=== PATIENT | male | born 1990 | race Caucasian/White ===

== ENCOUNTER 2020-03-20 16:12 | Emergency (ER) | payer OTHER | END 2020-03-21 00:50 | disposition other institution (70) | LOC: FER 16:12 | DX: T18.198A Other foreign object in esophagus causing other injury, initial encounter (principal); F17.290 Nicotine dependence, other tobacco product, uncomplicated; Z20.822 Contact with and (suspected) exposure to COVID-19 | CPT/HCPCS: 70490; 71045; J1170; J2405; U0002 ==